=== PATIENT | female | born 1990 | race Caucasian/White ===

== ENCOUNTER 2017-10-31 11:42 | Emergency (ER) | payer OTHER ==
[2017-10-31 11:50] VITALS: PULSE 67; RESP 16
--- NOTE | 2017-10-31 13:08 | EDPHY ---
H & P Time Seen by Provider: 10/31/17 12:47 HPI/ROS: CHIEF COMPLAINT: Dizziness HISTORY OF PRESENT ILLNESS: This 27-year-old woman presents with persistent dizziness which she describes like being "on a boat "with a sense of movement even when she is remaining still. Started 1 week ago Monday. It is worse when turning her head especially to the left and associated with some "full pressure "in her head. She received a steroid injection at her primary care physician's office on last Monday, it made it better temporarily, and yesterday went to physical therapy and had Bowen maneuvers which made things worse. She got a 2nd steroid shot yesterday but today presents with persistent dizziness. Symptoms moderate and today associated with intermittent anisocoria. Not associated with neck pain or recent injury or trauma or fever or chills or hearing loss or tenderness. REVIEW OF SYSTEMS: Eye: no change in vision or double vision ENT: No earache or ear drainage. Cardiac: no chest pain or syncope Pulmonary: no cough or SOB Abdomen: no vomiting, diarrhea, abdominal pain Musculoskeletal: No neck pain Skin: no rash Neuro: HPI, no weakness or numbness in extremities, does describe some ataxia while walking although is still able to walk unaided. Constitutional: no fever : no urinary symptoms A comprehensive 10 point review of systems is otherwise negative aside from elements mentioned in the history of present illness. PAST MEDICAL HISTORY: Seizure possibly 1 year ago last January had negative MRI imaging, was on anti epileptic medication for 2 months and then stop because of side effects. Migraine headaches. Social history: Negative for aneurysm or MS General Appearance: Alert and conversant, cooperative. Eyes: No scleral icterus. Pupils 4 mm reactive equal and extraocular motion is intact, nystagmus when looking to the left. ENT, Mouth: Normal mucous membranes. Tympanic membranes normal bilaterally. Hearing equal to confrontation. Respiratory: Normal respiratory effort, breath sounds equal, lungs are clear to auscultation. Cardiovascular: Regular rate and rhythm. Gastrointestinal: Abdomen is soft and non tender. Neurological: Alert, face symmetric, normal motor and sensory in extremities. Normal [id number] bilaterally and no pronator drift. Speech is fluent. Normal heel to adair bilaterally. Skin: Warm and dry, no rashes. Musculoskeletal: No peripheral edema. Normal range of motion of the neck. Psychiatric: Not agitated. Emergency Department course/MDM: Patient presents with symptoms that are likely peripheral vertigo in nature. However MRI discussed and consented given the persistent nature of her symptoms. She had Bowen maneuvers performed which did not make her better, so would favor labyrinthitis as a diagnosis. I think that vertebral dissection is unlikely. [employer] infection are unlikely. Partial seizure unlikely. 1420: Negative MRI brain per Dr. Nadeem Alvarez. Specifically no posterior circulation abnormalities. Referred to Neurology as an outpatient for peripheral vertigo. Patient declined any type of sedating medication. Smoking Status: Never smoked Constitutional: Initial Vital Signs Temperature (C) 36.6 C 10/31/17 11:45 Heart Rate 67 10/31/17 11:45 Respiratory Rate 16 10/31/17 11:45 Blood Pressure 128/80 H 10/31/17 11:45 O2 Sat (%) 99 10/31/17 11:45 O2 Delivery Mode Room Air Allergies/Adverse Reactions: No Known Allergies Allergy (Unverified 10/31/17 11:50) Home Medications: Medication Instructions Recorded Bcp 10/31/17 Venlafaxine HCl [Venlafaxine 25MG 25 mg PO 10/31/17 (*)] Medical Decision Making - Diagnostics Imaging Results: Imaging Impressions Brain MRI 10/31/17 13:07 Impression: Normal MRI of the brain without contrast. Specifically, negative for posterior circulation ischemia. Results called and discussed with CHET BRISCOE M.D. on 10/31/2017 at 14:21 Differential Diagnosis: Differential diagnosis considered for dizziness including but not limited to peripheral and central causes of vertigo, orthostatic causes including dehydration, and blood loss. Departure - Departure Disposition: Home, Routine, Self-Care Clinical Impression: Peripheral vertigo Qualifiers: Laterality: unspecified laterality Qualified Code(s): H81.399 - Other peripheral vertigo, unspecified ear Condition: Good Instructions: Vertigo (ED) Referrals: Carlos Burden DO [Primary Care Provider] - As per Instructions Finesse Wang DO [Medical Doctor] - As per Instructions (Please follow-up this week with your neurologist in the office.)
[2017-10-31 14:41] VITALS: BP 124/76; TEMP 98.2; O2SAT 97
== END 2017-10-31 14:41 | disposition home or self-care (01) ==
DX: H81.399 Other peripheral vertigo, unspecified ear (principal)